=== PATIENT | male | born 1955 | race Caucasian/White ===

== ENCOUNTER 2017-03-16 07:59 | Day surgery (SDC) | payer OTHER ==
[2017-03-16] VITALS (8 sets, daily range): BP systolic 108–138; BP diastolic 64–90; PULSE 59–60; RESP 12–18; O2SAT 95–99
[~2017-03-16] VITALS: Ht 172.7 cm; Wt 97.2 kg
[~2017-03-16 07:59] MED LIST: DOXA8TAB PO; LEVO137C2 PO; LOSA50TA37 PO; Lactated Ringer's 1,000 ML IV ONE
[2017-03-16] MEDS ORDERED: fentaNYL-PF 50 mCg/mL 2 mL Inj ONE ×2 (08:00)
[2017-03-16] MEDS ORDERED: CeFAZolin 2 Gm/50 mL D5W Duplex Bag IV ONE (08:11)
[2017-03-16] MEDS ORDERED: Belladonna Alk-Opium 60 mg Rectal Suppository RECTAL ONE ×2 (11:32→11:37)
[2017-03-16] MEDS ORDERED: Lactated Ringer's 500 ML IV PRN (11:51)
[2017-03-16] MEDS ORDERED: Lactated Ringer's 1,000 ML IV SCH (11:51)
--- NOTE | 2017-03-16 11:51 | PCM.HPANE ---
Patient Data Surgeon Admitting Provider: Attending Provider:Jocelin Preciado MD Primary Care Physician:Jose Bray MD Other Provider:Edna Doingham Anesthesia Reason for Visit BPH BPH Ht/WT & BMI Height (Feet): 5 Height (Inches): 8 Weight (Kilograms): 91.62 Body Mass Index 30.00 Allergies Coded Allergies: No Known Allergies (Verified , 03/10/17) Past Anesthesia History Anesthesia History: Denies:: Abnormal Airway, Anesthesia Reactions, Difficult Intubation, Fam Anesthesia Reaction Diabetes History Hx Diabetes?: No MRSA MRSA: No Medications Hypertension Medication: Yes Home Meds Incl Beta Boy: No Reported Medications Losartan Potassium 50 Mg [id number] Mg PO DAILY 03/10/17 Levothyroxine (Tirosint)137 Mcg [id number] Mcg PO DAILY 03/10/17 Discontinued Reported Medications Doxazosin ER (Cardura XL)8 Mg Tablet8 Mg PO DAILY 03/10/17 Doxazosin Mesylate 8 Mg Tablet8 Mg PO HS #30 TABLET Ref 0 03/09/15 Levothyroxine 137 Mcg [id number] Mcg PO DAILY Ref 0 03/09/15 History History of ENT Problems?: No HEENT History: Positive for:: Hearing Problem (no hearing aides) Denies:: Abnormal Airway Cataracts Difficult Intubation Dysphagia Glaucoma Sinus Problem ("stuffy" from CPAP) TMJ Denture Type: None Teeth Condition: Within Normal Limits Hx of Heart Problems?: Yes Cardiovascular History: Positive for:: Cardiac Surgery (pacemaker ) Hypertension Pacemaker Denies:: Chest Pain Congestive Heart Failure Edema Heart Murmur Irregular Heartbeat Thrombophlebitis Valvular Heart Disease (echo ef 60-65%) Hx of Respiratory Problem?: Yes Respiratory History: Positive for:: Use of C-PAP Machine Denies:: Asthma COPD Chest Surgery Dyspnea Emphysema Hemoptysis Oxygen Administration Pneumonia Tuberculosis Hx Neurologic Problems?: No Neurological History: Denies:: Alzheimer's Disease CVA Dementia Dizziness Headaches Multiple Sclerosis Parkinson's Disease Seizures Hx of GI Problems?: Yes Hx of Problems?: No Genitourinary History: Denies:: Kidney Stones Urinary Tract Infection Male Hx: Positive for:: Prostate Problems (current admission problem- BPH ) Skin History: Denies:: History Skin Disorders? Pressure Ulcers Hx Musculoskeletal Problems?: Yes Musculoskeletal History: Positive for:: Osteoarthritis Denies:: Back Injury Joint Replacement Musculoskeletal Trauma Myasthenia Gravis Hx of Psycho/Social Problems?: No Psycho Social History: Denies:: Anxiety Bipolar Disorder Hx Depression Hx Surgeries?: Yes (nimesh, pacemaker) Hx Any Other Health Problems?: Yes Other History: Positive for:: Hospitalization Thyroid Disease Denies:: Cancer Endocrine Disease History Blood Transfusions: Positive for:: Accept Blood Products? Denies:: Blood Transfuse Reaction Blood Transfusions Hx Diabetes: No Hx Alcohol Use: YesAlcoholic Drinks Per Day: three to four drinks weekHx Substance Use: No Smoking Status: Never Smoker Have You Smoked inLast 12 mo: No Stop/Bang P-Blood Pressure: treated: Yes B- Body Mass Index > 35 kg/m2: No A- Age over 50: Yes N- Neck Large Circumference: No G- Gender Male: Yes Risk Assessment Category Category 1A: Patient has history of documented sleep apnea, and HAS NOT received any narcotic, sedative or anesthesia administration during this stay. Category 1B: Patient has history of documented sleep apnea, and HAS received any narcotic , sedative or anesthesia administration during this stay Category 2: Patient has SUSPECTED Obstructive Sleep Apnea, and HAS received any narcotic , sedative or anesthesia administration during this stay. Category 3: Patient has SUSPECTED Obstructive Sleep Apnea and HAS NOT received narcotic, sedative or anesthesia administration during this stay. Category 4: Outpatient in Procedural Areas with known sleep apnea or who screen positive for High Risk via the STOP/BANG questionnaire. Exam Exam General Appearance: Alert, Oriented X3, Cooperative, No Acute Distress HEENT/AIRWAY: MP 2 Lungs: Clear to Auscultation, Normal Air Movement Heart: Exam Unremarkable, Regular Rate/Rhythm, No Murmurs/Rubs/Gallops Meds/Labs/Diagnostics Admission Meds Current Medications Lactated Ringer's (Lr) 1,000 ml @ 120 mls/hr Q8H20M ONCE IV Last administered on 03/16/17 08:04; Start 03/16/17 at 05:00; Stop 03/16/17 at 13:19 Plan Impression Patient chart reviewed, patient interviewed and anesthestic plan with risks, benefits, and alternatives discussed, and informed consent obtained. ASA Physical Status: ASA2 Mod Systemic Disease Anesthetic Plan: GA Bene/Risks/Altern/Consents: Yes HP Complete Prior to Induction: Yes Sameer Zepeda MD Mar 16, 2017 08:21
[2017-03-16] MEDS ORDERED: fentaNYL-PF 50 mCg/mL 2 mL Inj IVPUSH PRN (11:55)
[2017-03-16] MEDS ORDERED: HYDROmorphone 1 mg/mL Inj IVPUSH PRN ×2 (11:55→12:30)
[2017-03-16] MEDS ORDERED: EPHEDrine Sulfate 50 mg/mL Inj IVPUSH PRN (11:55)
[2017-03-16] MEDS ORDERED: Dexamethasone 4 mg/mL Inj IVPUSH PRN (11:55)
[2017-03-16] MEDS ORDERED: MetoCLOpramide 5 mg/mL 2 mL Inj IVPUSH PRN (11:55)
[2017-03-16] MEDS ORDERED: Ondansetron 2 mg/mL 2 mL Inj IVPUSH PRN (11:55)
[2017-03-16] MEDS ORDERED: Phenylephrine 10,000 mCg/mL Inj IVPUSH PRN (11:55)
[2017-03-16] MEDS ORDERED: Polyethylene Glycol (PEG) 17 Gm Powder PO PRN (12:30)
--- NOTE | 2017-03-16 13:40 | PCM.ANEP1 ---
Post Anesthesia PACU Phase 1 Assessment Vital Signs Vital Signs Date Time Temp Pulse Resp B/P Pulse Ox O2 Delivery O2 Flow Rate FiO2 03/16/17 12:50 60 15 112/70 98 Nasal Cannula 2 03/16/17 12:45 60 14 115/70 97 Nasal Cannula 2 03/16/17 12:40 60 13 112/65 98 Nasal Cannula 2 03/16/17 12:35 36.9 60 12 108/64 97 Nasal Cannula 2 03/16/17 08:28 CPAP/BIPAP 03/16/17 08:28 36.3 60 18 133/86 95 Room Air Anesthetic Administered: GA Level of Alertness: Awake, talking WING's with Equal Strength: Yes Pain: No Nausea or Vomiting: No CV Function & Hydration Stable: Yes Airway Device: Oxygen Delivery: Nasal Cannula Lungs: Clear to Auscultation, Normal Air Movement Dermatome Level: Full Sensation PACU Phase 2 Assessment Complications: Yes Patient Instructions Provided: Yes Sameer Zepeda MD Mar 16, 2017 13:40
[2017-03-16] MEDS: Ketorolac 15 mg/mL Inj IVPUSH PRN ×2 (14:07→21:11)
[2017-03-16] MEDS ORDERED: 0.9% Sodium Chloride 250 ML ONE (16:16)
[2017-03-16] MEDS: Acetaminophen IV 1,000 MG in IV Premix 1 EACH IV SCH ×2 (17:09→20:30)
[2017-03-17] MEDS: Acetaminophen IV 1,000 MG in IV Premix 1 EACH IV SCH ×3 (01:22→12:30)
--- NOTE | 2017-03-17 01:56 | OP ---
[address] [address] OPERATIVE REPORT PATIENT: VALERIE AMAYA : 1955 MR#: [id number] ADMIT: 03/16/2017 JOB ID: [id number] DATE OF SURGERY: 03/16/2017 PREOPERATIVE DIAGNOSIS(ES): 1. Benign prostatic hypertrophy. 2. Dissatisfaction and lack of efficacy of medical therapy. POSTOPERATIVE DIAGNOSIS(ES): 1. Benign prostatic hypertrophy. 2. Dissatisfaction and lack of efficacy of medical therapy. OPERATION PERFORMED: Transurethral resection of the prostate (underbeat). SURGEON: Jocelin Preciado MD. ANESTHESIOLOGIST: Sameer Zepeda MD. ANESTHESIA: General. FINDINGS: Urethra normal. External sphincter intact. Prostate 4.5 cm length with obstructing lateral lobe hyperplasia and elevated median bar. Bladder 1 to 2+ trabeculation. Normal orifices bilaterally. Clear efflux of urine. No stone, tumor, foreign body visualized. PROCEDURE SUMMARY: Patient was positioned in the semi-lithotomy position, and the lower abdomen, genitalia, perineum, and groin were prepped and draped in a sterile fashion. The 27-Burmese resectoscope was then positioned in the lower urinary tract. It was fitted with the resecting loupe and 30-degree lens. TUR of the median lobe and floor of the prostate was then undertaken, starting at the bladder neck and continuing to the verumontanum. Next tissue of the left lateral, followed by right lateral lobes were resected, and then finally obstructing tissue apically was resected. At no point was resection taken more distal than the verumontanum nor deeper than the surgical capsule. Hemostasis was satisfactorily accomplished with electrocautery. All chips and clots were irrigated and/or manually extracted from the bladder and prostatic fossae. The bladder was left partially filled, and all instrumentation was removed. A 24-Burmese three-way Luz catheter was then inserted, in the lower urinary tract, and was placed on 0.9 normal saline continuous bladder irrigation. Patient was then awakened and transferred [facility] and transferred to the recovery area awake in stable condition. The patient tolerated the procedure well.
[2017-03-17 04:55] VITALS: BP 106/64; PULSE 66; RESP 17; O2SAT 98
[2017-03-17 09:27] VITALS: BP 110/66; PULSE 62; RESP 16; O2SAT 99
--- NOTE | 2017-03-17 20:19 | DIS ---
[address] [address] DISCHARGE SUMMARY PATIENT: VALERIE AMAYA : 1955 MR#: [id number] ADMIT: 03/16/2017 JOB ID: [id number] DIS: 03/17/2017 ADMITTING DIAGNOSES: 1. BPH. 2. Failure of medical therapy. DISCHARGE DIAGNOSES: 1. BPH. 2. Failure of medical therapy. OPERATION PERFORMED: In-hospital transurethral resection of the prostate. HOSPITAL SUMMARY: The patient was admitted on the morning of March 16, 2017, and underwent uncomplicated transurethral resection of the prostate using the Total-traxerbeat generator under general anesthetic. His postop recovery was essentially unremarkable. Three-way irrigation and the Luz catheter were removed in the early a.m., first postoperative morning. He subsequently voided without difficulty, having a maximum PVR of only 75 cc. Pathology of the prostate chips is pending at discharge. He was provided a prescription for oxycodone and also Septra DS. Postoperative followup appointment is requested in 4-6 weeks with PDR.
== END 2017-03-17 16:20 | disposition home or self-care (01) ==
LOC: SAS 07:59 → OSC 13:47 → UNDOADMIN 13:47 → OSC 13:47 → SAS 03-17 16:20
PROVIDERS: ATTEND Specialist
DX: N40.1 Benign prostatic hyperplasia with lower urinary tract symptoms (principal); R35.0 Frequency of micturition; I10 Essential (primary) hypertension; I47.1 Supraventricular tachycardia; I49.5 Sick sinus syndrome; I49.8 Other specified cardiac arrhythmias; E78.5 Hyperlipidemia, unspecified; M19.90 Unspecified osteoarthritis, unspecified site; E03.9 Hypothyroidism, unspecified; Z95.0 Presence of cardiac pacemaker
CPT/HCPCS: 52601; J0131; J1170; J1885; J3010; J7050; J7120

== ENCOUNTER 2017-03-17 22:18 | Emergency (ER) | payer OTHER ==
[~2017-03-17] VITALS: Ht 172.7 cm; Wt 90.0 kg
[~2017-03-17 22:18] MED LIST changes: -DOXA8TAB PO; -Lactated Ringer's 1,000 ML IV ONE
[2017-03-17 22:23] VITALS: BP 145/89; PULSE 67; RESP 18; O2SAT 96
--- NOTE | 2017-03-17 22:29 | ED.REPORT ---
HPI- Male Date of Service Mar 17, 2017 ED Provider: Ryan Melgoza DO Pt is a 61 year old male with a history of pacemaker insertion and HTN who presents to the ED complaining of urinary retention onset after 19:00 today. He reports hematuria and dysuria when he last urinated at 19:00 today. Pt admits to current urinary urgency and abdominal pain. The pt was admitted to the ED on 03/16/17, and underwent "uncomplicated transurethral resection of the prostate." Nursing Notes Stated Complaint: COMPLICATIONS FROM TURP SURGERY Chief Complaint: Male Abdominal Pain Nursing Notes Reviewed: Yes Allergies: Coded Allergies: No Known Allergies (Verified , 03/10/17) Scheduled Levothyroxine (Tirosint) 137 Mcg Capsule 137 MCG PO DAILY Losartan Potassium (Losartan Potassium) 50 Mg Tablet 50 MG PO DAILY General Time Seen by MD: 22:29 Chief Complaint Other (Urinary retention) Hx Obtained From: Patient Arrived By: Walk-in Onset Occurred: 1 - 4 hours ago Symptom Duration: Since onset Location: : Abdomen lower: Abdomen upper Quality: Painful Radiation: : Does not radiate Severity: Current: Moderate Severity: Maximum: Moderate Recent Healthcare: Recent doctor visit, Recent hospitalization Similar Sx Previous: No Past Medical History Past Medical History Notes: The pt was admitted to the ED on 03/16/17, and underwent "uncomplicated transurethral resection of the prostate." Past Medical History Dyslipidema (no treatment) Past Surgical History Reports: Appendectomy Reports: Pacemaker insertion Smoking History Never Smoker Social History Drug Use: Denies drug use Other Social History: Good social support, Ambulatory Status Independent Review of Systems + urinary retention GI: Reports: Abdominal pain Male: Reports Dysuria, Reports Hematuria, Reports Urinary urgency Complete sys rev & neg: except as marked. Physical Exam Initial Vital Signs Vital Signs (First) Date Time Temp Pulse Resp B/P Pulse Ox O2 Delivery O2 Flow Rate FiO2 03/17/17 22:23 35.6 67 18 145/89 96 Room Air Initial VS: Reviewed Head / Eyes: Atraumatic, Normocephalic Neck: Supple, Full range of motion Respiratory: Breath sounds normal, Clear to auscultation, No respiratory distress Cardiovascular: Regular rate & rhythm, Heart sounds normal, Intact distal pulses Extremities: Vascular intact, Neuro intact Skin: Warm, Dry, No cyanosis Neurologic: Alert, Oriented, Nonfocal Psychiatric: Mood/affect normal, Behavior normal MALE : Exam deferred General/Constitutional: Awake, Alert Distress / Hydration: Positive: Distress mild Abdomen: Soft Suprapubic tenderness Re-Eval/Medical Decision Med Decision/Clinical Course Luz placed with prompt relief of pain and drainage about 600 mL of urine. Light pink colored urine. No gross clots. We will refer for urology recheck tomorrow. Source of Hx: Old records Re-Evaluation/Progress : Time of Eval: 22:33 Re-Evaluation/Progress Note: Informed pt of plan for Luz Catheter with pending discharge. Pt understands and agrees with plan. F/U instructions and RTER warnings given. All questions addressed. Counseled Regarding: Diagnosis, Lab results, Need for follow-up, When/why to return to ED Discharge & Departure Impression: Primary Impression: Urinary retention Disposition: Home Discharge Condition All VS Reviewed: Yes Condition: Stable Patient Instructions: Urinary Retention in Men (ED) Additional Instructions: Wear the Luz Catheter. Stay on your medications. Call Dr. Preciado tomorrow for a follow up appointment this week. Return to the Emergency Department for any new or concerning symptoms. Referrals: Jocelin Preciado MD OTHER,PHYSICIAN David Attestation Portions of this note were transcribed by Meghan Solano. I, Dr. Melgoza personally performed the history, physical exam and medical decision-making; I reviewed and confirmed the accuracy of the information in the transcribed note. Signed by : David Collazo, 03/17/17. copies to: Jocelin Preciado MD; OTHER,PHYSICIAN Ryan Melgoza DO Mar 17, 2017 22:29 Meghan Cherry Mar 17, 2017 22:39
[2017-03-17] MEDS ORDERED: Lidocaine 2% 6mL Topical Jelly ONE (22:50)
[2017-03-17 23:53] VITALS: BP 145/89; PULSE 67; RESP 18; O2SAT 96
== END 2017-03-17 23:54 | disposition home or self-care (01) ==
LOC: SED 22:18
DX: R33.9 Retention of urine, unspecified (principal); Z90.79 Acquired absence of other genital organ(s); E78.5 Hyperlipidemia, unspecified; Z95.0 Presence of cardiac pacemaker